=== PATIENT | male | born 1960 | race Caucasian/White ===

== ENCOUNTER 2021-03-19 17:10 | Emergency (ER) | payer SELFPAY ==
[~2021-03-19] VITALS: Ht 167.6 cm; Wt 81.8 kg
[2021-03-19 17:22] VITALS: BP 143/77
[2021-03-19] MEDS ORDERED: PROPARACAINE HCL 0.5% 15 ML OPHTHALMIC SOLUTION OU ONE (20:15)
== END 2021-03-19 20:44 | disposition left against medical advice (07) ==
LOC: EMS 17:12
DX: H53.2 Diplopia (principal)
CPT/HCPCS: 99281; 99282; Z7502